=== PATIENT | female | born 1980 | race Caucasian/White ===

== ENCOUNTER 2017-08-07 14:54 | Emergency (ER) | payer MEDICAID, SELFPAY ==
[2017-08-07 14:56] VITALS: BP 136/89; PULSE 72; RESP 14; TEMP 36.7; O2SAT 99; BMI 30.2
--- NOTE | 2017-08-07 15:44 | CT_ITS ---
STUDY: CT BRAIN WITHOUT CONTRAST REASON FOR EXAM: Female, 36 years old. Acute blunt trauma of the head. RADIATION DOSAGE (If Supplied By Facility): CTDIvol = ( 44.99 ) mGy, DLP = ( 745.49 ) mGycm TECHNIQUE: Transaxial CT imaging of the brain was performed without administration of intravenous contrast material. Individualized dose optimization techniques were used for this CT. COMPARISON: Prior head CT exam of July 12, 2016 FINDINGS: Normal soft tissue structures. Normal calvarium. Normal size ventricles and extra-axial spaces for the patient's age. Normal white matter tracts of the cerebral hemispheres. Normal basal ganglia and thalami. Normal brainstem. Normal cerebellum. There is no intracranial hemorrhage. There are no findings of an acute ischemic infarction. Normal visualized paranasal sinuses. CT/Brain/Head without Contrast IMPRESSION: Normal unenhanced CT scan of the brain. Electronically Signed: Page Elizondo MD at 16:53 EST , Service support ,
--- NOTE | 2017-08-07 15:44 | CT_ITS ---
STUDY: CT CERVICAL SPINE WITHOUT CONTRAST REASON FOR EXAM: Female, 36 years old. Acute blunt trauma to the head with nausea, headache and dizziness. RADIATION DOSAGE (If Supplied By Facility): CTDIvol = ( 17.27 ) mGy, DLP = ( 350.42 ) mGycm TECHNIQUE: High resolution transaxial imaging was performed without contrast material. Sagittal and coronal images were reconstructed. Individualized dose optimization techniques were used for this CT. COMPARISON: None FINDINGS: Normal craniovertebral junction. Normal anterior atlantoaxial articulation. Normal odontoid process. Normal cervical lordosis. Normal vertebral bodies and posterior osseous elements. C2-3: Normal endplates. Normal disc height and morphology. Normal central canal and intervertebral neuroforamina. C3-4: Normal endplates. Normal disc height and morphology. Normal central canal and intervertebral neuroforamina. C4-5: Normal endplates. Normal disc height and morphology. Normal central canal and intervertebral neuroforamina. C5-6: Normal endplates. Normal disc height and morphology. Normal central canal and intervertebral neuroforamina. C6-7: Normal endplates. Normal disc height and morphology. Normal central canal and intervertebral neuroforamina. C7-T1: Normal endplates. Normal disc height and morphology. Normal central canal and intervertebral neuroforamina. Normal visualized soft tissue structures. CT/Spine Cervical without Contras IMPRESSION: Normal unenhanced CT examination of the cervical spine. Negative for fracture. Electronically Signed: Page Elizondo MD at 16:39 EST , Service support ,
--- NOTE | 2017-08-07 15:49 | ED.VISSUMM ---
- ER Visit Summary Date of Service: 08/07/17 Chief Complaint: Head injury History of Present Illness: The patient is a 36 F who had a floor radha fall on her head yesterday. Patient states he fell from 3 feet above her head and weighed 3 pounds. She had a toboggan hat on and a hooded sweatshirt. Skin did not break. She has had headache, nausea, light sensitivity, and dizziness since that time. She took Tylenol with minimal improvement. Physical Examination: Vital signs are unremarkable. Head neck examination reveals no obvious external sign of trauma. She is very mild right cervical paraspinal tenderness. Heart is regular rate and rhythm. Lung sounds are clear. Neuro exam is normal. Test Results: CT scan of the head and C-spine are unremarkable. Emergency Department Course and Treatment: Patient was given Zofran to help control her nausea. On repeat evaluation she does feel improved. She began prescription for Zofran will use Tylenol or ibuprofen at home for headache. She be given written instructions on concussions. Treatment Plan: [] Disposition: Discharge Impression: 1. Concussion 2. Closed head injury This note was generated with SeeOn dictation software. It may contain incorrect words, spelling, and punctuation that were not noted in review of the chart prior to signing ED Disposition - Plan for ED Patient: Chief Complaint: Dizziness Referrals: Marcio Pineda [Primary Care Provider] -
[2017-08-07] MEDS: Ondansetron ODT 4 MG Tablet PO (15:50)
--- NOTE | 2017-08-07 17:07 | ED.DEP ---
ED Disposition - Plan for ED Patient: Disposition: Home or Assisted Living Chief Complaint: Dizziness Instructions: ED Concussion Prescriptions: Ondansetron [Zofran Odt] 4 mg PO Q8H PRN PRN #10 tablet PRN Reason: Nausea Referrals: Marcio Pineda [Primary Care Provider] - As Needed
[2017-08-07 17:11] VITALS: BP 115/80; PULSE 62; RESP 16; O2SAT 100
== END 2017-08-07 17:16 | disposition home or self-care (01) ==
PROVIDERS: Emergency Provider Emergency Medicine
DX: S06.0X0A Concussion without loss of consciousness, initial encounter (principal); W22.8XXA Striking against or struck by other objects, initial encounter; Y93.9 Activity, unspecified; Y92.9 Unspecified place or not applicable; J45.909 Unspecified asthma, uncomplicated; Z79.899 Other long term (current) drug therapy
CPT/HCPCS: 70450; 72125; 99283

== ENCOUNTER 2019-02-05 12:56 | Emergency (ER) | payer MEDICAID, SELFPAY ==
[2019-02-05 12:57] VITALS: BP 105/83; PULSE 84; RESP 16; TEMP 36.8; O2SAT 100; BMI 27.4
--- NOTE | 2019-02-05 13:39 | ED.DCSUM_ITS ---
- ER Visit Summary Date of Service: 02/05/19 Chief Complaint: [Shortness of breath] History of Present Illness: The patient is a 38 F [presents to the emergency department complaint shortness of breath started this morning. Patient states she has had 2 episodes today. First episode occurred while patient was in the shower at her mother's house. Patient then subsequently had another episode when she was picking her daughter up from the eye doctor appointment. Patient states that she was able to control the symptoms so she got home. Patient then started feeling very shaky and short of breath. She denies any chest pain. On the way to the hospital patient noticed that when her blood pressure cuff inflated she would have spasm of her fingers and curling and of her fingers. She does have a history of anxiety. Patient also 1 week ago had surgery at [facility] in [place] to revise a gastric bypass and she had had prior. Patient denies recent travel otherwise. She denies any fevers. She denies any cough.] Physical Examination: HEENT-PERRLA, EOMI. Cranial nerves II through XII grossly intact. TMs clear. Mucous membranes moist. No adenopathy. Cardiovascular-regular rate and rhythm without murmur or ectopy Lungs-clear to auscultation, chest wall stable without crepitus or subcu emphysema area patient does appear slightly anxious and appears to be hyperventilating. Abdomen-normoactive bowel sounds, soft. Patient has a MELISSA drain in the central portion of the abdomen draining some serous tinged fluid. The drain is sutured in place. No significant abdominal tenderness on exam. The incision sites look good there is no concern for infection. Extremities-intact ?4, normal range of motion, normal pulses, atraumatic. Patient is noted to have intermittent spasm of her fingers.] Test Results: [CBC with differential obtained for white count 7.0, hemoglobin 12, hematocrit 36, placed 294. Chemistries unremarkable other than depressed potassium at 2.9. LFTs showed a slightly elevated alk phos of 215 and ALT of 204. AST was 30. This was normal.] Emergency Department Course and Treatment: [Patient received Ativan 1 mg IV and her symptoms resolved.] Treatment Plan: I discussed with patient her results. I discussed that I suspect likely anxiety as the cause of her symptoms which she agrees is likely the cause. Given her recent surgery also entertained the possibility for PE however clinically I do not suspect this is the cause of her symptoms given that there are intermittent and patient is not having any chest pain or tachycardia or hypoxia. Patient also has anaphylactic-like reaction to IV dye. I did not feel patient required any type of further imaging or evaluation for PE at this time.] Disposition: [Discharged home in stable condition] Impression: [Anxiety reaction Hypokalemia] This note was generated with Glazeon dictation software. It may contain incorrect words, spelling, and punctuation that were not noted in review of the chart prior to signing ED Disposition - Plan for ED Patient: Referrals: Marcio Pineda MD [Primary Care Provider] -
[2019-02-05] MEDS: LORazepam 2 MG/ML Syringe 1 MG IV (13:48)
[2019-02-05] MEDS: 0.9% Normal Saline 1,000 ML 150 ML IV (13:48)
[2019-02-05 13:51] LABS: Bacteria 0 SEEN /hpf (None Seen); Mucous, Urine 0 SEEN /hpf (<or=2+); Red Blood Cells-Urine 0 SEEN /hpf (0-5); Squamous Epithelial Cells - UA 0 SEEN /hpf (5-10)
[2019-02-05 13:52] LABS: Color, Urine Yellow (Yellow); Glucose, Dipstick Normal (Normal); Ketone-Dipstick Negative (Negative); Leukocyte Esterase-Dipstick Negative /ul (Negative); Nitrite-Dipstick Negative (Negative); Occult Blood-Urine Negative /ul (Negative); Protein-Dipstick Negative (Negative); Urine Bilirubin Dipstick Negative (Negative); Urine Clarity Clear (Clear); Urine Urobilinogen Normal (Normal)
[2019-02-05 13:54] LABS: Absolute Lymphocyte Count 1.99 X10^3/uL (0.83-4.51); Absolute Neutrophil Count 3.9 X10^3/uL (2.0-7.7); Basophil# 0.04 X10^3/uL; Basophil% 0.6 % (0-1); Eosinophils% 7.2 % (0-5); Hematocrit 36.2 % (37-47); Hemoglobin 12.1 g/dL (12.0-15.0); Lymphocyte # 1.99 X10^3/ul (4.0); Lymphocyte % 28.5 % (19-41); Mean Corp Hgb Conc 33.4 g/dL (32-36); Mean Corpuscular Hgb 30.9 pg (27.0-32.0); Mean Corpuscular Volume 92.6 fL (81-99); Mean Platelet Vol. 10.6 fl (6.2-12.0); Monocyte# 0.49 X10^3/uL; NRBC Flagged by Analyzer 0 % (0-5); Neutrophil # 3.91 X10^3/uL (2.7-7.7); Neutrophil % 55.8 % (47-70); Platelet Count 294 K/mm3 (150-450); RBC Distribution Width CV 12.3 % (11.6-14.6); RBC Distribution Width SD 40.9 fl (35.1-43.9); Red Blood Count 3.91 M/mm3 (4.2-5.4)
[2019-02-05 13:55] VITALS: O2SAT 100
[2019-02-05 13:59] LABS: White Blood Cells 0-5 SEEN /hpf (0-5)
[2019-02-05 14:06] LABS: AST(SGOT) 30 U/L (15-37); Alanine Aminotransfer ALT/SGPT 204 U/L (13-56); Albumin, Serum 3.9 g/dL (3.2-5.0); Alkaline Phosphatase 215 U/L (45-117); Anion Gap 6 (5-15); BUN 6 mg/dL (7-18); BUN/Creat Ratio 7.3 RATIO (10-20); Calcium,Total 9.1 mg/dL (8.5-10.1); Chloride 105 mmol/L (98-107); Creatinine, Serum 0.82 mg/dL (0.55-1.02); EST Glomerular Filtration Rate 83 mL/min (>60); Est Glom Filt Rate - Afr Amer 101 mL/min (>60); Estimated Creatinine Clearance 74.29 ml/min; Globulin 3.8 g/dL (2.2-4.2); Glucose 87 mg/dL (74-106); Potassium 2.9 mmol/L (3.5-5.1); Protein, Total 7.7 g/dL (6.4-8.2); Sodium Level 139 mmol/L (136-145)
--- NOTE | 2019-02-05 14:15 | ED.DEP ---
ED Disposition - Plan for ED Patient: Instructions: Panic Attack Prescriptions: Lorazepam [Ativan] 1 mg PO TID PRN #10 tab PRN Reason: Anxiety Prescription Printed Referrals: Marcio Pineda MD [Primary Care Provider] - 3-5 Days
[2019-02-05 14:28] VITALS: BP 105/83; PULSE 89; RESP 17; O2SAT 100
== END 2019-02-05 14:41 | disposition home or self-care (01) ==
LOC: ED 13:19
PROVIDERS: Emergency Provider Emergency Medicine
DX: F41.1 Generalized anxiety disorder (principal); E87.6 Hypokalemia; Z79.899 Other long term (current) drug therapy
CPT/HCPCS: 80053; 81001; 85025; 96361; 96374; 99285; J7030

== ENCOUNTER → 2019-05-10 09:55 | Outpatient (CLI) | payer MEDICAID, SELFPAY ==
[2019-05-10 12:32] LABS: Cholesterol 251 mg/dL (200); Estradiol 16.4 pg/mL; High Density Lipoprotein 94 mg/dL; Triglycerides 83 mg/dL; Very Low Density Lipoprotein 17 mg/dL (5-40)
[2019-05-10 12:39] LABS: Progesterone Level 0.01 ng/mL (See Comment)
[2019-05-11 08:11] LABS: DHEA Sulfate 23.5 ug/dL (57.3-279.2)
[2019-05-11 11:42] LABS: Sex Hormone-binding Globulin 243.8 nmol/L (24.6-122.0)
== END ==
PROVIDERS: Visit Provider Obstetrics & Gynecology
DX: N95.1 Menopausal and female climacteric states (principal)
CPT/HCPCS: 80061; 82533; 82627; 82670; 84144; 84270; 84403; 82626

== ENCOUNTER → 2019-08-01 08:54 | Outpatient (CLI) | payer MEDICAID, SELFPAY ==
[2019-08-01 11:17] LABS: Estradiol 69.9 pg/mL
[2019-08-02 11:59] LABS: Sex Hormone-binding Globulin 193.7 nmol/L (24.6-122.0)
== END ==
PROVIDERS: Visit Provider Obstetrics & Gynecology
DX: Z79.890 Hormone replacement therapy (principal)
CPT/HCPCS: 36415; 82670; 84270; 84403